=== PATIENT | female | born 2005 | race Hispanic/Latino ===

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

== ENCOUNTER 2025-06-06 19:15 | Emergency (ER) | payer OTHER, SELFPAY ==
--- OUTSIDE RECORDS SUMMARY | 2025-06-06 19:18 | XMS_ITS | Data Portability ---
Author Organization [facility] , [facility] Address [address] [place] [address] Assessment No assessment recorded. Plan of Treatment Reminders Order Date Submit Date Provider Last Modified By Organization Details Last Modified Time Details Appointments None recorded. Lab bacterial vaginosis + vaginitis panel, vaginal 2023 024 MARTINE [facility], [address] [place], [address], 4 08:25:22 Referral primary care provider referral 2023 024 adal dahiana Thibodeaux MD, [address] [place] [address], [address], 4 15:18:05 Procedures None recorded. Surgeries None recorded. Imaging None recorded. Medication Orders None recorded. Patient TargetsNo targets recorded. Patient InstructionsNo instructions recorded. Reason for Referral Primary Care Provider Referr al for Pain of knee region PCP Referring Physician: Myron Michel [employer], Encounter Date: 03/15/2024 Results Created Date Observation Date Name Description Value Unit Range Abnormal Flag Note LastModifiedBy Organization Detail LastModifiedTime 03/15/2003/18/2024 VAGIN ITIS PLUS STD PANEL bacterial vaginosis BV POS negati ve abnormal Not Available [place] [facility] [address] [place], [address], 03/19/2024 08:25:22 03/15/20 24 03/18/2024 VAGIN ITIS PLUS STD PANEL frida species C. spp POS negati ve abnormal Not Available [address], [address], 03/19/2024 08:25:22 03/15/20 24 03/18/2024 VAGIN ITIS PLUS STD PANEL frida glabrata C. gla neg negati ve normal Not Available [address], [address], 03/19/2024 08:25:22 03/15/20 24 03/18/2024 VAGIN ITIS PLUS STD PANEL trichomonas vaginalis CV/TV TRICH neg negati ve normal Not Available [address], [address], 03/19/2024 08:25:22 03/15/20 24 03/18/2024 VAGIN ITIS PLUS STD PANEL chlamydia trachomatis CT neg negati ve normal This repor t is inten ded for us in clini [facility] or[facility] and manag ement of [facility] nts. It is not inten ded for use in medic al-le gal appli catio n. Not Available [address], [address], 03/19/2024 08:25:22 03/15/20 24 03/18/2024 VAGIN ITIS PLUS STD PANEL neisseria gonorrhoeae GC neg negati ve normal This repor t is inten ded for us in clini [facility] or[facility] and manag ement of patie nts. It is not inten ded for use in medic al-le gal appli catio n. Not Available [address], [address], 03/19/2024 08:25:22 Result Notes None recorded. Procedures Surgical History Date Name Laterality Status Provider Name and Address Organization Details Recorded Time Heart surgery completed [facility] [email or web address] 03/15/2024 14:20:52 Remove tonsils and adenoids completed [facility] [employer] [facility] 03/15/2024 14:27:15 Imaging Results None recorded. Procedure Notes None recorded. Medical Equipment None Reported. Allergies No known drug allergies Medications Name Sig Start Date Stop Date Status Note LastModified by Organization Details LastModified Time fluconazole 150 mg tablet active Not Available Not Available No t Available metronidazole 500 mg tablet Take 1 tablet every 12 hours by oral route for 7 days. 2023 active Not Available Not Available Not Avai lable sulfamethoxazole 800 mg-trimethoprim 160 mg tablet active Not Available Not Availabl e Not Available nitrofurantoin monohydrate/macr ocrystals 100 mg capsule active Not Available Not Available Not Available Vitals Date Recorded Body height Body mass index (BMI) [Percentile] Per age and sex Body mass index (BMI) Body weight Body temperature Systolic And Diastolic Provider Name and Address Organization Details Last Updated DateTime 157.48 cm 96.72 % 34.9 kg/m2 60585.4 2 g 97.8 [degF] 108/72 mm[Hg] Shannan Diaz [employer] 14:24:06 Social History Question Answer Notes LastModified by Organizat ion Details LastModified Time Tobacco Smoking Status Never Smoker Shannan Diaz null, [employer] 03/15/2024 14:20:47 If You Are , What Was Your Level Of Alcohol Consumption Prior To ? None [email or web address] Information not available 03/15/2024 Are You Blind Or Do You Have Difficulty Seeing? Yes [email or web address] Information not available 03/15/2024 Are You Deaf Or Do You Have Serious Difficulty Hearing? No [email or web address] Information not available 03/15/2024 What Type Of Diet Are You Following? REGULAR Information not available 03/15/2024 How Many Children Do You Have? 0 [email or web address] Information not available 03/15/2024 Are There Any Occupational Health Risks Where You Work? No Information not available 03/15/2024 What Is Your Relationship Status? Single [email or web address] Information not available 03/15/2024 Are You Sexually Active? Yes [email or web address] Information not available 03/15/2024 Sex: Unknown Functional Status Question Answer Note LastModified by Organizat ion Details LastModified Time Do you use any illicit or recreational drugs? No [email or web address] Information not available 03/15/2024 What is your level of alcohol consumption? None [email or web address] Information not available 03/15/2024 Are you currently employed? Yes [email or web address] Information not available 03/15/2024 What is your exercise level? None [email or web address] Information not available 03/15/2024 Mental Status None recorded. Family History Relationship Description Onset Age of this Age Resolved Age Notes LastModified by Organization Details LastModified Time Mother Depressive disorder Not available 03/15 14:20:38 Mother Hypertensive disorder [email or web address] Not available 03/15 14:20:38 Unspecified Relation Hypertensive disorder [email or web address] Not available 03/15 14:20:38 Unspecified Relation Diabetes mellitus [email or web address] Not available 03/15 14:20:38 Medical History Condition Response Other Cancer N High Blood Pressure N Colon Cancer N Cytomegalovirus N Hyperthyroidism N Breast Cancer N Herpes (HSV) N MRSA N Blood Transfusion N Lung Cancer N Depression N Hypothyroidism N Incontinence N Panic Attacks N Neurological Disorder N Deep Vein Thrombosis N Anxiety Disorder N Autoimmune disease N Arthritis N Tuberculosis/Positive PPD N Shingles N Polycystic Ovarian Syndrome N Infertility N Cervical Cancer N Hematuria N Chlamydia N Varicosities N Stroke N Crohn's Disease N Seasonal allergies N Alzheimer's/Dementia N COPD/Emphysema N HPV/Genital Warts N Endometriosis N IBS (Irritable Bowel Syndrome) N History of Abnormal Pap N High Cholesterol N Liver Disease N Fibromyalgia N Kidney Infection N Ulcer N Kidney Disease N HIV N Gallbladder disease N Von Willebrand disease N Sickle Cell Disease/Trait N ADD/ADHD N Eating Disorder N Diabetes Mellitus (non-insulin dependent ) N Anemia N Ovarian Problems N Multiple Sclerosis N Gonorrhea N Frequent Urinary Tract infections N Osteopenia N Headaches/migraines N GERD (reflux) N Ovarian Cancer N Diabetes (insulin dependent) N Seizures/Epilepsy N Breast Problems N Fibroids N Asthma N Heart Attack N Endometrial Cancer N Lupus N Rubella N Blood Clotting Disorder N Bipolar Disorder N Diabetes Mellitus (during ) N Ulcerative Colitis N Hepatitis N Heart Disease N Pulmonary Embolism N RPR N Chicken Pox N Osteoporosis N Gynecological History Statement/Question Response Flow Heavy Date of LMP 02/25/2024 HPV Vaccine Y Date of Last Pap Smear Duration of Flow (days) 4 Most Recent Mammogram Current Control Method None Age at Menarche 8 Obstetrics History GPAL:G 0 P 0 0 1 0 Type Value Multiple Births 0 Full Term 0 Induced 1 Spontaneous 0 Premature 0 Living 0 Ectopics 0 Total 0 Past Encounters Encounter ID Performer Location Encounter Start Date Encounter Closed Date Diagnosis/Indication Diagnosis SNOMED-CT Code Diagnosis ICD10 Code Diagnosis IMO Codes Diagnosis Note [id number] MYRON MICHEL NP [facility] [address] [place] [address] 03/15/2024 14:13:23 03/15/2024 16:17:52 Vaginal discharge 043582677 N89.8 43511 Acute vaginitis 38990969 N76.0 vaginal discharge and discomfort for several months. The patient is having unprotecte d intercours e with male partner.Va ginal discharge: - vaginitis/ STI swab sent, will treat per culture.- Reviewed vulvar hygiene: avoid tight or moist clothing, soaps, Vagisil and other wipes, cotton underwear only, and sleep without unscented detergent- Advised to figure out triggering factors (wet gym cloths, lotion, sensitivit y to partner, sensitive latex).- Discussed Silicon-ba sed menstrual discs or cups for menses.- Discussed OTC Vaginal boric acid role in vaginal infections .- Followup to be scheduled after results for further management . Pain of knee region 1003 194433 M25.569 [id number] Health Concerns Section Related Observation LastModified by Organization Detai ls LastModified Time None Recorded Concern Status LastModified by Organization Details LastModified Time None Recorded Advance Directives Directive None Recorded Payers Insurance Date Sequence Insurance Name Policy Number Policy Minor Covered Member ID Minor Member ID Guarantor Name 03/11/2024 1 [place] Carmen Engel [id number] Carmen Engel 03/15/2024 1 [place] Carmen Engel [facility] [id number] Carmen Engel 03/11/2024 1 [facility] ON OR AFTER 12/31/20 (MEDICAID REPLACEMENT - HMO) Carmen Engel [id number] Carmen Engel 03/13/2024 1 [facility] ON OR AFTER 12/31/20 (MEDICAID REPLACEMENT - HMO) Carmen Engel [id number] Carmen Engel Notes Date Note Type Note Provider Name and Address Organization Details Recorded Time 03/15/2024 text/html ROS as noted in the HPI Carmen is here because of vaginal discharge. She states it's watery and has an odor. She says it seems to get worse after having sex. She says sometimes it presents like a grayish color, and others it is brown. She has no other issues or concerns at this time. MYRON MICHEL, [employer]IST [address] [place], [address], [facility] 03/15/2024 14:49:12 OBGyn Episode No OBEpisode recorded.
[2025-06-06 19:32] VITALS: BP 115/72; PULSE 97; RESP 16; TEMP 36.9; O2SAT 97
--- NOTE | 2025-06-06 20:54 | ED_ITS ---
HPI - Extremity Injury (Lower) General Chief Complaint: Extremity Injury, Lower Stated Complaint: left leg pain/tightness in calf Time Seen by Provider: 06/06/25 20:54 Source: patient Mode of arrival: ambulatory Limitations: no limitations History of Present Illness HPI Narrative: 19 years old female came to the ED by private car complaining of tightness of the muscles at the back of the thighs and lower legs bilaterally after finishing a working out class. Patient denies any pain. Patient is healthy otherwise, Related Data Allergies Allergy/AdvReac Type Severity Reaction Status Date / Time No Known Allergies Allergy Verified 06/06/25 19:20 Review of Systems Review of Systems: All systems reviewed & are unremarkable except as noted in HPI and below PMFSH Past Medical History Medical History Patient denies medical problems Surgical History Surgical History No pertinent past surgical history Social History Social History Smoking status: Never smoker Exam Narrative: General appearance: Well-developed, well-nourished Skin: Normal color Head: Normocephalic, nontraumatic Eyes: Clear conjunctiva ENT: Oropharynx normal, ears normal, nose normal Neck: Supple, nontender Chest and respiratory: Airway patent, no respiratory distress, no accessory muscle use Heart: Regular rate/rhythm Abdomen: Soft, nontender, no organomegaly, quiet bowel sounds Vascular: Normal peripheral pulses, normal capillary refill. Musculoskeletal: Normal range of motion, nontender back Neurologic: Alert and oriented ?3, [employer] is normal as tested, no gross motor deficit Course Vital Signs Vital signs: Vital Signs Temperature 36.9 C 06/06/25 19:32 Pulse Rate 97 06/06/25 19:32 Respiratory Rate 16 06/06/25 19:32 Blood Pressure 115/72 06/06/25 19:32 Pulse Oximetry 97 06/06/25 19:32 Temperature 36.9 C 06/06/25 19:32 Pulse Rate 97 06/06/25 19:32 Respiratory Rate 16 06/06/25 19:32 Blood Pressure 115/72 06/06/25 19:32 Pulse Oximetry 97 06/06/25 19:32 MDM MDM Narrative Medical decision making narrative: Patient came with lower extremity tightness Vital signs are stable Physical examination showing no significant abnormalities Diagnosis strain/sprain of the lower extremity muscles/ligament/tendons Imaging or labs are required at this time The pt was discharged to home.the pt,s condition upon discharge was fair,education was provided to the pt in reference to the final impression,discharge study results,treatment,prognosis and need for follow up . Differential Diagnosis Differential Diagnosis: Lower extremity muscular strain/sprain Discharge Plan Discharge Clinical Impression: Lower extremity sprain Patient Disposition: Home Condition: Stable Additional Instructions: Return if symptoms are worsening , call your family physician for appointment, take Tylenol, ibuprofen as as needed for aches and pain, continue home medications. Patient Language: Grenadian Prescriptions: No Action ondansetron 4 mg tablet,disintegrating 4 mg PO Q6H PRN (Reason: nausea and vomiting) Qty: 10 0RF cephalexin 500 mg capsule 500 mg PO Q12H 7 Days Qty: 14 0RF amoxicillin-pot clavulanate 875-125 mg tablet 1 tablet PO Q12H Qty: 20 0RF Follow-up/Referrals: PHYSICIAN NOT ON STAFF,NONSTAFF [Non-Staff]
== END 2025-06-06 22:14 | disposition home or self-care (01) ==
PROVIDERS: Emergency Provider Emergency Medicine
DX: S89.82XA Other specified injuries of left lower leg, initial encounter (principal); X50.9XXA Other and unspecified overexertion or strenuous movements or postures, initial encounter
CPT/HCPCS: 99281